=== PATIENT | male | born 1980 | race Caucasian/White ===

== ENCOUNTER 2016-09-22 11:09 | Emergency (ER) | payer OTHER ==
[2016-09-22 11:25] VITALS: BP 137/71
--- NOTE | 2016-09-22 11:39 | UC ---
Back Pain HPI - HPI Summary HPI Summary: upper back pain x many years getting over the past year, pain is shooting / sharp , radiates to his both arm + injury to his back many years ago after a fall . no weakness of his upper or lower ext, no numbness, + tingling - History of Current Complaint Chief Complaint: UCBackPain Stated Complaint: COUGHING BLOOD,SEVERE BACK PAIN Time Seen by Provider: 09/22/16 11:12 Hx Obtained From: Patient Onset/Duration: Gradual Onset, Lasting Weeks - many years, Still Present, Worse Since - over the past year Timing: Constant Severity Initially: Moderate Severity Currently: Moderate Character: Throbbing, Burning Aggravating: Movement Alleviating: Position Associated Signs And Symptoms: Positive: Tingling. Negative: Swelling, Redness , Bruising, Fever, Weakness, Numbness, Abdominal Pain, Flank Pain, Bladder Incontinence, Bowel Incontinence, Weight Loss - Allergies/Home Medications Allergies/Adverse Reactions: Allergies Allergy/AdvReac Type Severity Reaction Status Date / Time Lisinopril Allergy lip Verified 09/22/16 11:14 Swelling, hives Home Medications: Home Medications Ibuprofen TAB* [Advil TAB*] 600 mg PO Q6H PRN 09/22/16 [History Confirmed ] Naproxen Sodium [Naproxen Sodium 500 MG TAB] 500 mg PO BID PRN 09/22/16 [ History Confirmed 09/22/16] PMH/Surg Hx/FS Hx/Imm Hx Endocrine History Of: Denies: Diabetes, Thyroid Disease Cardiovascular History Of: Reports: Cardiac Disorders - PVCs, cardiomyopathy, Hypertension Respiratory History Of: Denies: Asthma - Surgical History Surgical History: Yes Surgery Procedure, Year, and Place: 2008-CARDIAC CATH-HYPNOTIC. 2015 Right fifth finger scar tissue removal - Family History Known Family History: Positive: Hypertension, Diabetes - Social History Alcohol Use: Occasionally Substance Use Type: Marijuana Substance Use Comment - Amount & Last Used: daily for sleep Smoking Status (MU): Former Smoker Amount Used/How Often: 2 CIGARETTES PER DAY X 5 YEARS Have You Smoked in the Last Year: No When Did the Patient Quit Smoking/Using Tobacco: 5 years ago Review of Systems Constitutional: Negative Skin: Negative Eyes: Negative ENT: Nasal Discharge Respiratory: Cough Cardiovascular: Negative Gastrointestinal: Negative Genitourinary: Negative Musculoskeletal: Other: - back pain All Other Systems Reviewed And Are Negative: Yes Physical Exam Triage Information Reviewed: Yes Appearance: Well-Appearing, No Pain Distress, Well-Nourished Vital Signs: Initial Vital Signs Temp 98.9 F 09/22/16 11:16 Pulse 72 09/22/16 11:16 Resp 16 09/22/16 11:16 BP 137/71 09/22/16 11:16 Pulse Ox 99 09/22/16 11:16 Vital Signs Reviewed: Yes Eye Exam: Normal Eyes: Positive: Conjunctiva Clear ENT: Positive: Normal ENT inspection, Hearing grossly normal, Pharynx normal Neck: Positive: Supple, Nontender, No Lymphadenopathy Respiratory: Positive: Chest non-tender, Lungs clear, Normal breath sounds Cardiovascular: Positive: RRR, No Murmur, Pulses Normal Abdominal Exam: Normal Abdomen Description: Positive: Nontender, Soft. Negative: CVA Tenderness (R), CVA Tenderness (L), Distended, Guarding Bowel Sounds: Positive: Present Musculoskeletal Exam: Normal Musculoskeletal: Positive: Strength Intact, ROM Intact, No Edema, Other: - upper back : no swelling, no erythem , no tenderness, good ROM on flexion and extension normal strength of upper ext. Neurological: Positive: Alert Psychological Exam: Normal Skin Exam: Normal Diagnostics - Laboratory Diagnostic Studies Completed/Ordered: normal thoracic spine xray Back Pain Course/Dx - Differential Dx/Diagnosis Provider Diagnoses: upper back pain Discharge - Discharge Plan Condition: Stable Disposition: HOME Patient Education Materials: Chronic Back Pain (ED) Referrals: CLEMENTINE Braga [Primary Care Provider] - 7 Days
--- NOTE | 2016-09-22 11:51 | RAD ---
Indication: Back pain. 2 views of the thoracic spine are reviewed. Pedicles appear intact. Osteopenia is noted. Disc spaces all well-preserved. IMPRESSION: Unremarkable thoracic spine.
== END 2016-09-22 12:15 | disposition home or self-care (01) ==
LOC: UCCORT 11:09
DX: M54.6 Pain in thoracic spine (principal); R20.2 Paresthesia of skin; Z88.8 Allergy status to other drugs, medicaments and biological substances; I49.3 Ventricular premature depolarization; I42.9 Cardiomyopathy, unspecified; I10 Essential (primary) hypertension; F12.90 Cannabis use, unspecified, uncomplicated; Z87.891 Personal history of nicotine dependence
CPT/HCPCS: 72070; 99211; G0463

== ENCOUNTER 2016-09-23 15:46 | Emergency (ER) | payer OTHER ==
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
[2016-09-23] MEDS ORDERED: Ketorolac INJ* 60 MG/2 ML VIAL IM ONE (16:57)
--- NOTE | 2016-09-23 17:00 | RAD ---
INDICATION: Right-sided chest pain COMPARISON: January 31, 2015 TECHNIQUE: PA and lateral dual-energy views were obtained. FINDINGS: Bones/Soft Tissues: There are no acute bony findings. Cardiomediastinal: The cardiomediastinal silhouette is normal. Lungs: There are no infiltrates. There is no pneumothorax Pleura: There are no pleural effusions. Other: None IMPRESSION: NEGATIVE EXAMINATION
[2016-09-23 17:47] VITALS: BP 133/81
== END 2016-09-23 18:00 | disposition home or self-care (01) ==
LOC: UCEAST 15:46
DX: R07.9 Chest pain, unspecified (principal); I10 Essential (primary) hypertension; I49.3 Ventricular premature depolarization; I42.9 Cardiomyopathy, unspecified; K21.9 Gastro-esophageal reflux disease without esophagitis; F41.9 Anxiety disorder, unspecified; Z87.891 Personal history of nicotine dependence; G89.29 Other chronic pain; M54.9 Dorsalgia, unspecified; R04.2 Hemoptysis
CPT/HCPCS: 71020; 93005; 96372; 99212; G0463; J1885

== ENCOUNTER → 2017-05-17 20:38 | Day surgery (SDC) | payer OTHER ==
[2014-09-18 10:05] VITALS: BP 129/88
--- NOTE | 2014-09-19 01:54 | OP ---
DATE OF OPERATION: 09/18/14 - [facility] DATE OF : 84 SURGEON: Dr. Shaver. [employer]: CRISTIN Mabry. ANESTHESIA: Local MAC. PRE-OP DIAGNOSIS: Right small finger scar after a work injury. POST-OP DIAGNOSIS: Right small finger scar after a work injury. OPERATIVE PROCEDURE: Remove mass, right small finger, and Z-plasty of the right small finger scar. INDICATIONS: Armin is a 34-year-old male who suffered an injury at work. He had a crush injury of his right small finger. He has a scar on the volar aspect of his finger just proximal to the PIP flexion crease; it is very painful. He presents for removal. ESTIMATED BLOOD LOSS: Zero. TOURNIQUET TIME: About 20 minutes. DESCRIPTION OF PROCEDURE: The patient was brought to the operating room, was given a sedation anesthetic and a digital block with 10 cc of 1% plain lidocaine. The skin of his right hand and forearm was prepped and draped in the usual sterile fashion. The hand and forearm were exsanguinated and tourniquet elevated to 250 mmHg. Because of the scar on the volar surface, it was decided to do a Z-plasty lengthening. The initial scar was incised longitudinally and the underlying mass which appeared to be scar tissue was carefully excised from just under the skin down to the flexor tendon sheath. It was then measured for a 6-degree flap with 1-cm legs, and the flaps were transformed after the wound was irrigated. This allowed for near full extension of the PIP joint lacking maybe 1 or 2 degrees. The skin edges were reapproximated. The wound was dressed with Xeroform, 4x4, Webril, and Coban. The patient tolerated the procedure, was brought to the recovery room in good condition. [id number]/[facility] #: [id number] ROBERT
[~2017-05-17 20:38] MED LIST: Dexamethasone IV* 4 MG/ML 1 ML (4 MG) ONE; Famotidine IV* 10 MG/ML 2 ML (20 mg) ONE; Lidocaine 1% INJ* 10 MG/ML 30 ML SDV ONE; Propofol* 20 ML ONE; fentaNYL* 50 MCG/ML 2 ML VIAL (100 MCG VIAL) ONE
== END | disposition home or self-care (01) ==
LOC: OREAST 09-18 08:27
PROVIDERS: ATTEND Orthopaedic Surgery
DX: L90.5 Scar conditions and fibrosis of skin (principal); R00.2 Palpitations; I10 Essential (primary) hypertension; Z87.891 Personal history of nicotine dependence
CPT/HCPCS: 88305; J1100; J2704; J3010

== ENCOUNTER 2017-06-24 17:45 | Emergency (ER) | payer OTHER ==
[2017-06-24] MEDS ORDERED: diPHENhydraMINE IV* 50 MG/ML 1 ml VIAL (BENADRYL) IV ONE (17:57)
[2017-06-24] MEDS ORDERED: Famotidine IV* 10 MG/ML 2 ML (20 mg) IV ONE (17:57)
[2017-06-24] MEDS ORDERED: methylPREDNISolone 125 MG* 2 ML VIAL IV ONE (17:57)
[2017-06-24] MEDS ORDERED: NS 0.9% 500 ML* 500 ML IV ONE (18:50)
--- NOTE | 2017-06-24 18:54 | ED ---
Amy Trent Thomas, scribed for Casa Pavon MD on 06/24/17 at 1812 . Allergic Reaction/Systemic - HPI Summary HPI Summary: The patient is a 36 year old male who presents with redness to his arms, neck, and chest that began about an hour ago. The patient describes an itching sensation. He denies shortness of breath and throat tightening. 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 The patient is unable to tolerate aluminum deodorant and he suspects he may be suffering an allergic reaction. - History of Current Complaint Chief Complaint: EDAllergicReaction Time Seen by Provider: 06/24/17 17:54 Hx Obtained From: Patient Onset/Duration: Sudden Onset, Started minutes ago - 30-45 minutes, Still Present , Worse Since Timing: Constant Severity Initially: Moderate Severity Currently: Moderate Pain Intensity: 0 Character: Hives Aggravating Factor(s): Nothing Associated Signs And Symptoms: Negative: Throat Tightening - Allergies/Home Medications Allergies/Adverse Reactions: Allergies Allergy/AdvReac Type Severity Reaction Status Date / Time Lisinopril Allergy lip Verified 09/23/16 16:09 Swelling, hives PMH/Surg Hx/FS Hx/Imm Hx Endocrine/Hematology History: Denies: Hx Anticoagulant Therapy, Hx Diabetes, Hx Thyroid Disease Cardiovascular History: Reports: Hx Angina - [place] 2008- NO PROBLEMS SINCE, Hx Hypertension Denies: Hx Congestive Heart Failure, Hx Deep Vein Thrombosis, Hx Myocardial Infarction, Hx Pacemaker/ICD Respiratory History: Denies: Hx Asthma - He complains of this "on and off.", Hx Chronic Obstructive Pulmonary Disease (COPD), Hx Lung Cancer, Hx Pneumonia, Hx Pulmonary Embolism GI History: Reports: Hx Gastrointestinal Bleed - He had GI bleeding about a year ago (hematochezia). He did not have endosc Denies: Hx Gall Bladder Disease, Hx Ulcer, Hx Urosepsis History: Denies: Hx Kidney Stones, Hx Renal Disease Sensory History: Denies: Hx Contacts or Glasses, Hx Hearing Aid Opthamlomology History: Denies: Hx Contacts or Glasses Neurological History: Denies: Hx Dementia, Hx Migraine, Hx Seizures, Hx Transient Ischemic Attacks (TIA) Psychiatric History: Reports: Hx Anxiety - On no medications. state that he "turns into a fruitcake." Denies: Hx Depression, Hx Schizophrenia, Hx Bipolar Disorder - Surgical History Surgery Procedure, Year, and Place: 2009-CARDIAC CATH-HYPNOTIC. 2014 Right fifth finger scar tissue removal Hx Anesthesia Reactions: No Infectious Disease History: No Infectious Disease History: Denies: Hx Clostridium Difficile, Hx Hepatitis, History Other Infectious Disease, Traveled Outside the [place] in Last 30 Days - Family History Known Family History: Positive: Hypertension, Diabetes - Social History Alcohol Use: Rare Substance Use Type: Reports: Marijuana Substance Use Comment - Amount & Last Used: daily for sleep Hx Tobacco Use: No Smoking Status (MU): Former Smoker Amount Used/How Often: 2 CIGARETTES PER DAY X 5 YEARS Have You Smoked in the Last Year: No Review of Systems Negative: Fever Negative: Other - Throat tightening Negative: Shortness Of Breath Positive: Rash All Other Systems Reviewed And Are Negative: Yes Physical Exam - Summary Physical Exam Summary: General: well-appearing, no pain distress Skin: warm, color reflects adequate perfusion, dry. Hives on upper chest and arms. Head: normal Eyes: EOMI, OTILIA ENT: normal Neck: supple, nontender Respiratory: CTA, breath sounds present Cardiovascular: RRR Abdomen: soft, nontender Bowel: present Musculoskeletal: normal, strength/ROM intact Neurological: normal, sensory/motor intact, A&O x3 Psychological: affect/mood appropriate Triage Information Reviewed: Yes Vital Signs On Initial Exam: Initial Vitals Temp Pulse Resp BP Pulse Ox 98.4 F 74 22 149/90 98 06/24/17 17:49 06/24/17 17:49 06/24/17 17:49 06/24/17 17:49 06/24/17 17:49 Vital Signs Reviewed: Yes Diagnostics - Vital Signs Vital Signs Temp Pulse Resp BP Pulse Ox 06/24/17 17:49 98.4 F 74 22 149/90 98 - Laboratory Lab Statement: Any lab studies that have been ordered have been reviewed, and results considered in the medical decision making process. Allergic Reaction Course/Dx - Course Course Of Treatment: Medications reviewed. Allergies noted. BP noted and advised follow up with PMD. IMPROVED IN ED, WISHES TO GO HOME. NO AIRWAY INVOLVEMENT. F/U PMD; RETURN IF WORSE. - Diagnoses Provider Diagnoses: Uncontrolled hypertension, Allergic reaction Discharge - Discharge Plan Condition: Stable Disposition: HOME Prescriptions: Famotidine TAB* [Pepcid 20 MG TAB*] 20 mg PO BID PRN #8 tab PRN Reason: Allergy Symptoms predniSONE TAB* [Deltasone TAB*] 40 mg PO DAILY PRN #8 tab PRN Reason: Allergy Symptoms Patient Education Materials: General Allergic Reaction (ED) Referrals: CLEMENTINE Braga [Primary Care Provider] - Additional Instructions: FOLLOW UP WITH YOUR DOCTOR. RETURN TO THE EMERGENCY DEPARTMENT FOR ANY WORSENING OF YOUR CONDITION; DIFFICULTY BREATHING OR SWALLOWING OR QUESTIONS OR CONCERNS. The documentation as recorded by the Amy rob Thomas accurately reflects the service I personally performed and the decisions made by , Casa Pavon MD.
[2017-06-24 19:37] VITALS: BP 140/92
== END 2017-06-24 19:36 | disposition home or self-care (01) ==
LOC: ED 17:45
DX: T78.40XA Allergy, unspecified, initial encounter (principal); R21 Rash and other nonspecific skin eruption; I10 Essential (primary) hypertension; X58.XXXA Exposure to other specified factors, initial encounter
CPT/HCPCS: 96374; 96375; 99282; J1200; J2930